=== PATIENT | male | born 1990 | race Caucasian/White ===

== ENCOUNTER 2024-02-13 19:43 | Emergency (ER) | payer OTHER, SELFPAY ==
--- NOTE | ~2024-02-13 | CT_ITS ---
EXAMINATION: CTA brain carotid DATE: 02/13/2024 21:39 INDICATION: Stroke. TECHNIQUE: Computed tomographic angiography (CTA) of the head was performed with 100 mL Omnipaque-350 intravenous contrast. CTA of the neck was performed with intravenous contrast. Automated exposure co ntrol and iterative reconstruction technique were employed. The dose-length product was 1056.59 mGy-c m. Maximum intensity projection and volume rendered 3D-reconstructions were created by the [employer] on a separate workstation. COMPARISON: Head CT 02/13/2024 FINDINGS: HEAD CTA: There is no intracranial hemorrhage, acute infarction, or abnormal intracranial mass lesion . The ventricles are normal in size. The orbits are normal. There is mild mucosal thickening in the p aranasal sinuses. The mastoid air cells are normal. The vertebral arteries are codominant. There is n o significant stenosis of basilar artery or the posterior cerebral arteries. There is no significant stenosis of the intracranial internal carotid arteries or anterior or middle cerebral arteries. Anter ior communicating artery is normal. The posterior communicating arteries are normal. There is no aneu rysm. NECK CTA: There are no pathologically enlarged lymph nodes. There is no significant stenosis of the v ertebral arteries. There is no visible plaque in the proximal internal carotid arteries. There is 0% stenosis of the proximal right internal carotid artery relative to normal distal artery lumen diamete r (NASCET criteria). There is 0% stenosis of the proximal left internal carotid artery relative to no rmal distal artery lumen diameter. The bones are unremarkable. IMPRESSION: 1. Normal brain. No aneurysm or significant intracranial arterial stenosis. 2. 0% stenosis of the proximal internal carotid arteries relative to normal distal artery lumen diame ters (NASCET criteria). Reviewed, dictated and finalized at location E. IMPRESSION: 1. Normal brain. No aneurysm or significant intracranial arterial stenosis. 2. 0% stenosis of the proximal internal carotid arteries relative to normal dis umm artery lumen diameters (NASCET criteria).
--- NOTE | ~2024-02-13 | XR_ITS ---
EXAMINATION: XR chest 1V DATE: 02/13/2024 20:20 INDICATION: Right-sided numbness. Weakness. TECHNIQUE: A single frontal view of the chest was obtained. COMPARISON: None. FINDINGS: There is no pneumonia, pleural effusion, or pneumothorax. The heart size is normal. IMPRESSION: 1. No acute cardiopulmonary disease. Reviewed, dictated and finalized at location E.
--- NOTE | ~2024-02-13 | CT_ITS ---
EXAMINATION: CT brain wo con DATE: 02/13/2024 20:18 INDICATION: Right-sided numbness. Weakness. TECHNIQUE: Computed tomography (CT) of the head was performed without intravenous contrast. The mA wa s adjusted according to patient size. Iterative reconstruction technique was employed. The dose-lengt h product was 529.67 mGy-cm. COMPARISON: None FINDINGS: There is no intracranial hemorrhage, acute infarction, or abnormal intracranial mass lesion . The ventricles are normal in size. The orbits are normal. There is mild mucosal thickening in the p aranasal sinuses. The mastoid air cells are normal. IMPRESSION: 1. Normal brain. Reviewed, dictated and finalized at location E. IMPRESSION: 1. Normal brain.
[2024-02-13 19:47] VITALS: BP 161/99; PULSE 109; RESP 14; TEMP 37.1; O2SAT 99
[2024-02-13 20:00] VITALS: BP 138/98; PULSE 100; RESP 15; TEMP 36.4; O2SAT 97
[2024-02-13 20:05] VITALS: BP 138/98; PULSE 101; PULSE 99; RESP 10; O2SAT 96
--- NOTE | 2024-02-13 20:09 | ECG_ITS ---
SEE SCANNED COPY FOR CONFIRMED REPORT MTDD
[2024-02-13 20:17] LABS: Basophils Absolute Auto 0.1 K/mm3 (0.0-0.1); Basophils Percent Auto 0.6 % (0.2-1.2); Eosinophils Absolute Auto 0.3 K/mm3 (0-0.3); Eosinophils Percent Auto 3.9 % (0-4.4); Hematocrit 45.2 % (42.0-52.0); Hemoglobin 15.2 g/dL (14.0-18.0); Immature Granulocyte Absolute 0.03 K/mm3 (0.00-0.031); Immature Granulocyte Percent A 0.4 % (0-0.5); Lymphocytes Absolute Auto 3.02 K/mm3 (0.9-3.2); Lymphocytes Percent Auto 39.2 % (18.3-44.2); Mean Corpuscular HGB Conc 33.6 g/dl (32-36); Mean Corpuscular Hemoglobin 30.6 pg (26-34); Mean Corpuscular Volume 91.1 fl (80-100); Mean Platelet Volume 9.9 fl (7.4-10.4); Monocytes Absolute Auto 0.8 K/mm3 (0.1-0.6); Monocytes Percent Auto 9.7 % (2.6-8.5); Neutrophils Absolute Auto 3.6 K/mm3 (1.3-6.7); Neutrophils Percent Auto 46.2 % (45.5-73.1); Platelet Count Result 218 k/mm3 (150-375); Red Blood Count 4.96 M/mm3 (4.6-6.20); Red Cell Distribution Width 13.2 % (11.5-14.5); White Blood Count 7.7 K/mm3 (4.5-10.0)
[2024-02-13 20:28] LABS: INR 0.9; Prothrombin Time 12.1 Seconds (11.1-14.7)
[2024-02-13 20:29] LABS: Partial Thromboplastin Time 25.5 Seconds (22.3-36.8)
[2024-02-13 20:32] LABS: Alanine Aminotransferase 128 U/L (6-50); Albumin Level 5.1 g/dL (3.5-5.1); Alkaline Phosphatase 69 U/L (38-126); Anion Gap 15 mmol/L (4-12); Aspartate Amino Transferase 68 U/L (17-59); Bilirubin,Total 0.4 mg/dL (0.2-1.3); Blood Urea Nitrogen 14 mg/dL (9-20); Calcium 9.8 mg/dL (8.4-10.2); Carbon Dioxide 21 mmol/L (22-30); Chloride 107 mmol/L (98-107); Estimated CRCL calculation 97 ml/min; Estimated Glomerular Filt Rate > 60; Glucose 101 mg/dL (65-110); Potassium 4.4 mmol/L (3.4-5.0); Sodium 143 mmol/L (137-145)
[2024-02-13 20:45] LABS: Troponin I < 0.012 ng/mL (0.000-0.034)
--- NOTE | 2024-02-13 20:49 | ED.NEUROSD ---
HPI - Neuro Symptoms/Deficit General Chief Complaint: Neuro Symptoms/Deficit Stated Complaint: I think I had a stroke Time Seen by Provider: 02/13/24 20:16 Source: patient Mode of arrival: ambulatory History of Present Illness HPI Narrative: 33-year-old male presenting for concerns for a stroke. Reports at 5:45 a.m. this morning he let his dog outside and immediately developed complete numbness and paralysis on the right side of his body. Right arm right leg mostly affected. Lasted about 5 minutes and then slowly went away. He has been asymptomatic for the last 12 hours now. No history of this. Related Data Allergies Allergy/AdvReac Type Severity Reaction Status Date / Time Penicillins Allergy Unknown Verified 02/13/24 20:04 Review of Systems Review of Systems: All systems reviewed & are unremarkable except as noted in HPI and below Exam Narrative: Constitutional: Generally well appearing, no acute distress Head: Atraumatic, no deformities. Eyes: Pupils equal, round, and reactive to light. Neck: Supple, no tracheal deviation, no JVD. ENMT: Mucous membranes moist Cardiovascular: S1, S2 auscultated. No murmurs, rubs, or gallops. No S3/S4. Normal Distal pulses. No peripheral edema. Respiratory: Lung sounds equal. No wheezes, rales, or rhonchi. Gastrointestinal: Abdomen was soft and non-tender. Non-distended. No rebound or guarding. Genitourinary: Deferred Musculoskeletal: Normal muscle tone and bulk. No obvious deformities or tenderness over extremities. Skin: No rashes. Neurological: Strength 5/5 in extremities. Cranial nerves I-XII grossly intact. Distal sensation intact. NIH 0. Mental Status: Awake, alert and oriented x3. Follows commands Course Vital Signs Vital signs: Vital Signs Temperature 37.1 C 02/13/24 19:47 Pulse Rate 109 H 02/13/24 19:47 Respiratory Rate 14 02/13/24 19:47 Blood Pressure 161/99 H 02/13/24 19:47 Pulse Oximetry 99 02/13/24 19:47 Oxygen Delivery Room Air 02/13/24 19:47 Temperature 36.4 C 02/13/24 20:00 Pulse Rate 98 02/13/24 20:50 Respiratory Rate 22 H 02/13/24 20:50 Blood Pressure 128/81 02/13/24 20:50 Pulse Oximetry 96 02/13/24 20:50 Oxygen Delivery Room Air 02/13/24 20:00 MDM - Neuro Symptoms/Deficit MDM Narrative Medical decision making narrative: 33-year-old male presenting for concerns for stroke this morning. He had complete right-sided paralysis and numbness for about 5 minutes after letting his dog outside this morning. Never happened before. Symptoms completely resolved after about 20 minutes. On exam he has a normal neurological exam currently. NIH 0. Initially was hypertensive but now he is no longer hypertensive. Very well appearing. Concern for possible TIA. Obtaining stroke workup. CT head negative. CTA head and neck obtained. NIH stroke scale 0. EKG at 8:39 p.m. shows sinus rhythm, normal intervals. Rate of 94. Incomplete right bundle-branch block. No ST elevation or depression. Impression: No STEMI Labs and imaging reviewed. Showing no focal abnormality. CT head negative. CTA head and neck negative. Patient has been asymptomatic completely since his initial episode at 5:45 a.m. this morning. Suspect this is TIA. When. The ABCD2 score which puts him at a 3 for low risk. Discussed this with him that he is stable for discharge home and follow-up with Neurology in the next few days. Instructed return immediately for any new or worsening symptoms. Pt feeling improved and would like to go home at this point. Return precautions were given to the patient include any new or worsening symptoms or development of and not limited to any chest pain, shortness of breath, lightheadedness, abdominal pain, fevers, chills. Patient understands and agrees. They are to follow-up with her PCP. All questions were answered. I reviewed the patient's vital signs, history, allergies, and labs and imaging workup. Lab Data 01/31
[2024-02-13 20:50] VITALS: BP 128/81; PULSE 98; RESP 22; O2SAT 96
== END 2024-02-13 22:38 | disposition home or self-care (01) ==
PROVIDERS: Emergency Provider Emergency Medicine
DX: G45.9 Transient cerebral ischemic attack, unspecified (principal); I45.10 Unspecified right bundle-branch block
CPT/HCPCS: 36415; 70450; 70496; 70498; 71045; 80053; 84484; 85025; 85610; 85730; 93005; 99284; Q9967